=== PATIENT | male | born 1960 | race Caucasian/White ===

== ENCOUNTER → 2019-09-27 12:41 | Outpatient (CLI) | payer OTHER, SELFPAY ==
--- NOTE | 2019-09-27 | DI.MRI.S_ITS ---
PROCEDURE: MR KNEE RT WO CON INDICATIONS: Other tear of medial meniscus, current injury, rig TECHNIQUE: Noncontrast sagittal PD fast spin echo and T2 fast spin echo with fat saturation, sagittal 3-D FLASH with fat saturation; coronal T1 spin echo and PD fast spin echo with fat saturation, and axial PD fast spin echo with fat saturation through the knee. COMPARISON: [facility], CR, XR KNEE ARTHRITIC SERIES RT, 09/17/2019, 13:52. FINDINGS: Image quality: Excellent. Menisci: There is degenerative tear in the posterior horn and body of the medial meniscus. The lateral meniscus demonstrates normal morphology and internal signal. The meniscal root ligaments appear intact. Cruciate ligaments: The anterior and posterior cruciate ligaments appear intact. Medial structures: The medial collateral ligament appears intact. The semimembranosus tendon insertionsand meniscocapsular junction appear intact. Visualized portions of the pes anserinus tendons appear normal. No abnormal bursal fluid. Lateral structures: The lateral collateral ligament, long and short heads of the biceps femoris tendon appear intact. The popliteus tendon appears normal. Iliotibial band appears normal. Anterior structures: The quadriceps and patellar tendons appear intact. Patellar alignment is normal. No femoral trochlear dysplasia or ventral trochlear prominence. No edema in the infrapatellar fat pad. Bones and cartilage: No fractures. Severe chondromalacia patella with reactive edema in the patella and femoral trochlear. There is mild cartilage thinning and fibrillation of the medial and lateral femorotibial compartments. Joint space: There is moderate knee joint effusion. There are multiple intra-articular bodies in the superior lateral knee joint. There is a moderate-sized multilocular Brewer's cyst, which contains a 1.0 x 1.4 cm intra-articular body. There is a 0.6 x 1.1 x 1.7 cm cyst in the proximal tibia adjacent to the proximal tibiofibular joint. Normal appearing synovial plicae are incidentally noted. IMPRESSION: 1. Degenerative tear involving the posterior horn and body of the medial meniscus patient 2. Multiple intra-articular bodies, suspicious for synovial chondromatosis. 3. Severe chondromalacia patella. There is also mild cartilage thinning and fibrillation in the medial and lateral femorotibial compartment. 4. Moderate knee joint effusion. 5. A moderate-sized multilocular Brewer cyst continue a joint body. 6. A cyst is seen in the proximal tibia posterior laterally adjacent to the proximal tibiofibular joint. Differential diagnoses include a ganglion cyst and a synovial cyst. Dictated by: Jack Donaldson M.D. on 09/29/2019 at 9:07 Approved by: Jack Donaldson M.D. on 09/29/2019 at 17:51
== END ==
PROVIDERS: PCP Family Medicine; Referring Provider Orthopaedic Surgery; Visit Provider Orthopaedic Surgery
DX: S83.241A Other tear of medial meniscus, current injury, right knee, initial encounter (principal); M22.41 Chondromalacia patellae, right knee; M25.461 Effusion, right knee; M71.21 Synovial cyst of popliteal space [Baker], right knee; X58.XXXA Exposure to other specified factors, initial encounter
CPT/HCPCS: 73721